=== PATIENT | female | born 1950 | race Caucasian/White ===

== ENCOUNTER 2018-07-20 17:34 | Emergency (ER) | payer OTHER, BC ==
--- NOTE | 2018-07-20 18:07 | PDOC ---
Rapid Medical Evaluation Chief Complaint: Abscess Boil Time Seen by Provider: 07/20/18 18:05 Medical Evaluation: Allergies Allergy/AdvReac Type Severity Reaction Status Date / Time valsartan [From Diovan] Allergy Mild Verified 12/23/12 07:02 cefaclor [From Ceclor] AdvReac Intermediate Difficulty Verified 12/23/12 07:02 Breathing TAPE Allergy Mild Rash Uncoded 12/23/12 07:02 07/20/18 18:05 I have performed a brief in-person evaluation of this patient. The patient presents with a CC of: Abscess HPI: Pt is a 68 YO female who states "I have had a cyst on the right side for years and it starting draining this week." Pt denies hx of MRSA. Admits to hx of Type II DM. Denies fever/chills. Pertinent PE: Skin: unable to be assessed at triage Lungs: Clear Heart: RRR MS. Moves all extremities Neuro: Alert Psych: Age appropriate. The patient will proceed to [facility] for further evaluation. Discharge Disposition - Diagnosis Abscess - Referrals - Patient Instructions - Post Discharge Activity
[2018-07-20 18:09] VITALS: BP 149/86; PULSE 87; TEMP 99.1; BMI 44.1
[2018-07-20] MEDS ORDERED: IBUPROFEN 400 MG TABLET (FP) PO ONE ×2 (19:07→19:10)
--- NOTE | 2018-07-20 19:12 | PDOC ---
History of Present Illness - General Chief Complaint: Abscess Boil Stated Complaint: PCP SENT/BIBIANAESS BOIL/CELLULITIS Time Seen by Provider: 07/20/18 18:05 History Source: Patient Exam Limitations: Clinical Condition - History of Present Illness Initial Comments: 07/20/18 19:27 Patient with h/o diabetes on meds present with complains of right ribs abscess which has been persistent for a week. patient report she saw PCP a week ago for symptoms and was placed on levaquin Abx and silvadene cream but symptoms persists and went back to PCP today for I&D but PCP referred her to to urgent care for I&D who in turn refer pt to ED. Patient denies fever, chills. Patient denies any other symptoms Timing/Duration: 1 week Past History - Past Medical History Allergies/Adverse Reactions: Allergies Allergy/AdvReac Type Severity Reaction Status Date / Time iodine Allergy Intermediate Rash Verified 07/20/18 18:06 valsartan [From Diovan] Allergy Mild Verified 07/20/18 18:06 cefaclor [From Ceclor] AdvReac Intermediate Difficulty Verified 07/20/18 18:06 Breathing TAPE Allergy Mild Rash Uncoded 07/20/18 18:06 Home Medications: Ambulatory Orders Albuterol Sulfate [Proair Respiclick] 90 mcg IH PRN 06/04/16 Allopurinol [Zyloprim -] 100 mg PO DAILY 06/04/16 Clindamycin/Tretinoin [Ziana Gel] 30 gm TP HS 06/04/16 Levothyroxine [Synthroid -] 175 mcg PO DAILY 06/04/16 Metoprolol Succinate [Toprol XL -] 50 mg PO DAILY 06/04/16 Sitagliptin Phosphate [Januvia] 100 mg PO DAILY 06/04/16 Cephalexin Monohydrate [Keflex -] 500 mg PO BID 7 Days #14 capsule 07/20/18 Ibuprofen 800 mg PO Q8H PRN #20 tablet 07/20/18 Mupirocin Ointment [Bactroban 2% Ointment -] 1 applic TP BID #1 tube 07/20/18 Sulfamethoxazole/Trimethoprim [Bactrim Ds -] 1 tab PO BID #14 tablet 07/20/18 Anemia: No Asthma: Yes (H/O BRONCHITIS) Cancer: Yes (ENDOMETRIAL WITH RADIATION) Cardiac Disorders: No CVA: No COPD: No CHF: No Dementia: No Diabetes: Yes GI Disorders: Yes (COLON POLYPS,HEMORRHOIDS) Disorders: No HTN: Yes Hypercholesterolemia: No Liver Disease: No Seizures: No Thyroid Disease: Yes (HYPOTHYROID) - Surgical History Abdominal Surgery: No Appendectomy: No Cardiac Surgery: No Cholecystectomy: No Lung Surgery: No Neurologic Surgery: No Orthopedic Surgery: Yes (LEFT ANKLE TUMOR CTR RIGHT) - Suicide/Smoking/Psychosocial Hx Smoking History: Never smoked Have you smoked in the past 12 months: No Hx Alcohol Use: No Drug/Substance Use Hx: No Substance Use Type: None Review of Systems - Review of Systems Able to Perform ROS?: Yes Is the patient limited Palauan proficient: No Constitutional: No: Chills, Fever Respiratory: No: Symptoms reported Cardiac (ROS): No: Symptoms Reported ABD/GI: No: Symptoms Reported, Nausea, Vomiting Musculoskeletal: Yes: Muscle Pain (ribs lower ribs over abscess area) Integumentary: Yes: Erythema (over abscess), Lumps (right lower ribs abscess) All Other Systems: Reviewed and Negative *Physical Exam - Vital Signs Last Vital Signs Temp Pulse Resp BP Pulse Ox 99.1 F 87 17 149/86 97 07/20/18 18:06 07/20/18 18:06 07/20/18 18:06 07/20/18 18:06 07/20/18 18:06 - Physical Exam General Appearance: Yes: Nourished, Appropriately Dressed. No: Apparent Distress HEENT: positive: Normal ENT Inspection Neck: positive: Supple Respiratory/Chest: positive: Lungs Clear. negative: Respiratory Distress, Accessory Muscle Use Cardiovascular: positive: Regular Rhythm, Regular Rate Gastrointestinal/Abdominal: positive: Flat, Soft. negative: Organomegaly Integumentary: positive: Other (3cm abscess over lateral side of 6th ribs on axilla region with mild surrounding erythema. no drainage from asbcess) Moderate Sedation - Procedure Monitoring Vital Signs: Procedure Monitoring Vital Signs Temperature 99.1 F 07/20/18 18:06 Pulse Rate 87 07/20/18 18:06 Respiratory Rate 17 07/20/18 18:06 Blood Pressure 149/86 07/20/18 18:06 O2 Sat by Pulse Oximetry (%) 97 07/20/18 18:06 Procedures - Incision and Drainage I&D Site: Right: Axilla (lateral to right 5th ribs) Betadine cleansed: No (cleaned with chloroprep due to iodien allergy) Anesthesia: 1% Lidocaine Volume(ml): 2 Blade Size: 11 Attempts: 1 Iodinated Packin in Plain Packing: Yes Complications: none Dressing: Yes Progress: 07/20/18 19:39 Exam significant for 3cm non-draining abscess over right axilla lateral to right 5th rib with mild surrounding erythema. wound cleaned with chlorohexadine and I&D done with #11 blade. wound packing placed. bacitracin applied and pressure dressing with 4x4 and adhesive bandage placed Medical Decision Making - Medical Decision Making 07/20/18 19:35 Patient with h/o diabetes on meds present with complains of right ribs abscess which has been persistent for a week. patient report she saw PCP a week ago for symptoms and was placed on levaquin Abx and silvadene cream but symptoms persists and went back to PCP today for I&D but PCP referred her to to urgent care for I&D who in turn refer pt to ED. Exam significant for 3cm non-draining abscess over right axilla lateral to right 5th rib with mild surrounding erythema. wound cleaned and I&D done . wound packing placed. bacitracin applied and pressure dressing with 4x4 and adhesive bandage placed. patient stable for discharge Keflex and Bactrim with follow-up in 2 days for packing removal. *DC/Admit/Observation/Transfer Diagnosis at time of Disposition: Abscess of skin and subcutaneous tissue Qualifiers: Site of cutaneous abscess: trunk Site of cutaneous abscess of trunk: chest wall Qualified Code(s): L02.213 - Cutaneous abscess of chest wall - Discharge Dispostion Disposition: HOME Condition at time of disposition: Stable Decision to Admit order: No - Prescriptions Prescriptions: Cephalexin Monohydrate [Keflex -] 500 mg PO BID 7 Days #14 capsule Ibuprofen 800 mg PO Q8H PRN #20 tablet PRN Reason: pain Mupirocin Ointment [Bactroban 2% Ointment -] 1 applic TP BID #1 tube Sulfamethoxazole/Trimethoprim [Bactrim Ds -] 1 tab PO BID #14 tablet - Referrals Referrals: Kyle Vicente MD [Primary Care Provider] - - Patient Instructions Printed Discharge Instructions: DI for Incision and Drainage of a Skin Abscess Additional Instructions: take medication as prescribed. apply heat compress to area 2-3times/day. come back in 2 days for wound packing removal - Post Discharge Activity
== END 2018-07-20 19:22 | disposition home or self-care (01) ==
LOC: JERFT 17:34
PROC: 0H97XZZ Drainage of Abdomen Skin, External Approach (ICD-10-PCS; principal; 2018-07-20)
DX: L02.213 Cutaneous abscess of chest wall (principal); I10 Essential (primary) hypertension; E03.9 Hypothyroidism, unspecified; E11.9 Type 2 diabetes mellitus without complications
CPT/HCPCS: 87070; 87205; 99281-25

== ENCOUNTER 2018-07-22 14:08 | Emergency (ER) | payer OTHER, BC ==
[2018-07-22 14:21] VITALS: BP 140/88; PULSE 94; TEMP 99.1; BMI 43.2
--- NOTE | 2018-07-22 14:27 | PDOC ---
Rapid Medical Evaluation Time Seen by Provider: 07/22/18 14:10 Medical Evaluation: Allergies Allergy/AdvReac Type Severity Reaction Status Date / Time iodine Allergy Intermediate Rash Verified 07/22/18 14:10 valsartan [From Diovan] Allergy Mild Verified 07/22/18 14:10 cefaclor [From Ceclor] AdvReac Intermediate Difficulty Verified 07/22/18 14:10 Breathing TAPE Allergy Mild Rash Uncoded 07/22/18 14:10 07/22/18 14:13 I have performed a brief in-person evaluation of this patient. The patient presents with a chief complaint of: wound check of R chest wall abscess, still draining lots of pus per pt, packing in place. No f/c On keflex and bactrim. Wound cx 2 days ago neg so far (of note, pt was already on levaquin prior to recent ED visit. H/o DM (last HA1c ~7 per pt), endometrial cancer remotely Pertinent physical exam findings:defer to FT I have ordered the following:nothing The patient will proceed to the ED for further evaluation. Discharge Disposition - Diagnosis Wound check, abscess - Referrals - Patient Instructions - Post Discharge Activity
--- NOTE | 2018-07-22 14:56 | PDOC ---
Suture Removal/Wound Check HPI - History of Present Illness Chief Complaint: Revisit,Wound Recheck Stated Complaint: REVISIT, FOLLOW UP Time Seen by Provider: 07/22/18 14:10 History Source: Yes: Patient Exam Limitations: Yes: No Limitations [facility] - Previous ED Treatment Type of procedure performed on last visit: Yes: I&D of Abscess Tetanus Immunization: Yes: Up to Date Antibiotics Prescribed: No - Onset of Previous Treatment Comment:: 07/23/18 08:04 came for. reevaluation and packing change of right flank abscess. states is painful, has felt feverish, Is continuing to drain purulent drainage. Past History - Travel Traveled outside of the country in the last 30 days: No Close contact w/someone who was outside of country & ill: No - Past Medical History Allergies/Adverse Reactions: Allergies Allergy/AdvReac Type Severity Reaction Status Date / Time iodine Allergy Intermediate Rash Verified 07/22/18 14:10 valsartan [From Diovan] Allergy Mild Verified 07/22/18 14:10 cefaclor [From Ceclor] AdvReac Intermediate Difficulty Verified 07/22/18 14:10 Breathing TAPE Allergy Mild Rash Uncoded 07/22/18 14:10 Home Medications: Ambulatory Orders Albuterol Sulfate [Proair Respiclick] 90 mcg IH PRN 06/04/16 Allopurinol [Zyloprim -] 100 mg PO DAILY 06/04/16 Clindamycin/Tretinoin [Ziana Gel] 30 gm TP HS 06/04/16 Levothyroxine [Synthroid -] 175 mcg PO DAILY 06/04/16 Metoprolol Succinate [Toprol XL -] 50 mg PO DAILY 06/04/16 Sitagliptin Phosphate [Januvia] 100 mg PO DAILY 06/04/16 Cephalexin Monohydrate [Keflex -] 500 mg PO BID 7 Days #14 capsule 07/20/18 Ibuprofen 800 mg PO Q8H PRN #20 tablet 07/20/18 Mupirocin Ointment [Bactroban 2% Ointment -] 1 applic TP BID #1 tube 07/20/18 Sulfamethoxazole/Trimethoprim [Bactrim Ds -] 1 tab PO BID #14 tablet 07/20/18 Oxycodone HCl/Acetaminophen [Percocet 5-325 mg Tablet -] 1 - 2 tab PO Q4H PRN # 7 tablet MDD 4 07/22/18 Anemia: No Asthma: Yes (H/O BRONCHITIS) Cancer: Yes (ENDOMETRIAL WITH RADIATION) Cardiac Disorders: No CVA: No COPD: No CHF: No Dementia: No Diabetes: Yes GI Disorders: Yes (COLON POLYPS,HEMORRHOIDS) Disorders: No HTN: Yes Hypercholesterolemia: No Liver Disease: No Seizures: No Thyroid Disease: Yes (HYPOTHYROID) - Surgical History Abdominal Surgery: No Appendectomy: No Cardiac Surgery: No Cholecystectomy: No Lung Surgery: No Neurologic Surgery: No Orthopedic Surgery: Yes (LEFT ANKLE TUMOR CTR RIGHT) - Immunization History Immunization Up to Date: Yes - Suicide/Smoking/Psychosocial Hx Smoking History: Never smoked Have you smoked in the past 12 months: No Hx Alcohol Use: No Drug/Substance Use Hx: No Substance Use Type: None Suture Removal/Wound Check PE - Physical Exam Laceration/Wound Check Symptoms: reports: None Current Severity Level: None Maximum Severity Level: None *Review of Systems - Review of Systems Able to Perform ROS?: Yes Constitutional: Yes: Symptoms Reported, See HPI, Fever, Malaise HEENTM: Yes: See HPI. No: Symptoms Reported Respiratory: No: Symptoms reported ABD/GI: Yes: Symptoms Reported Integumentary: Yes: Symptoms Reported, See HPI, Bruising, Erythema, Lesions Neurological: No: Symptoms reported All Other Systems: Reviewed and Negative *Physical Exam - Vital Signs Last Vital Signs Temp Pulse Resp BP Pulse Ox 99.1 F 94 H 18 140/88 98 07/22/18 14:10 07/22/18 14:10 07/22/18 14:10 07/22/18 14:10 07/22/18 14:10 - Physical Exam General Appearance: Yes: Nourished, Appropriately Dressed, Apparent Distress, Mild Distress HEENT: positive: EOMI, MANUEL, Normal ENT Inspection, TMs Normal, Pharynx Normal Neck: positive: Supple. 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 NML intact, Fully Oriented, Alert, Normal Mood/ Affect, Normal Response, Motor Strength 5/5 Moderate Sedation - Procedure Monitoring Vital Signs: Procedure Monitoring Vital Signs Temperature 99.1 F 07/22/18 14:10 Pulse Rate 94 H 07/22/18 14:10 Respiratory Rate 18 07/22/18 14:10 Blood Pressure 140/88 07/22/18 14:10 O2 Sat by Pulse Oximetry (%) 98 07/22/18 14:10 Procedures - Incision and Drainage Anesthesia: 1% Lidocaine w/ Epi Blade Size: 11 Iodinated Packin/4 in Complications: none Dressing: Yes *DC/Admit/Observation/Transfer Diagnosis at time of Disposition: Wound check, abscess - Discharge Dispostion Disposition: HOME Condition at time of disposition: Stable Decision to Admit order: No - Prescriptions Prescriptions: Oxycodone HCl/Acetaminophen [Percocet 5-325 mg Tablet -] 1 - 2 tab PO Q4H PRN # 7 tablet MDD 4 PRN Reason: Pain - Referrals Referrals: Kyle Vicente MD [Primary Care Provider] - - Patient Instructions Printed Discharge Instructions: DI for Debridement of a Wound, Infection, or Burn Additional Instructions: Rest, keep area elevated. Avoid strenuous activity or exercise until wound is healed Use hot soaks to area to bring more blood to the surface and encourage drainage May change dressings as needed to keep clean - trying to avoid removal of packing for 2 days. If packing needs to be changed, return to emergency department or with your followup physician for wound care and evaluation and repacking as needed If packing needs to be removed, then in 2 days, while in the shower remove dressing and quickly pull the packing taken out. Allow water from shower to wash area thoroughly for 2-3 minutes, and pat dry upon exit of shower and replace dressing. Change his dressing daily until the wound is completely healed. May use Tylenol or Motrin for mild pain relief Use stronger medications as directed and prescribed Continue all medications as prescribed Followup with private physician in 2-3 days for wound check Return to emergency Department for worsening swelling, pain, redness, fevers as needed - Post Discharge Activity
== END 2018-07-22 15:28 | disposition home or self-care (01) ==
LOC: JER 14:08
DX: Z48.01 Encounter for change or removal of surgical wound dressing (principal)
CPT/HCPCS: 99281-25

== ENCOUNTER 2018-07-24 11:17 | Emergency (ER) | payer OTHER, BC ==
[2018-07-24 11:24] VITALS: BP 117/73; PULSE 82; TEMP 98.8; BMI 43.2
--- NOTE | 2018-07-24 12:20 | PDOC ---
Suture Removal/Wound Check HPI - History of Present Illness Chief Complaint: Revisit,Wound Recheck Stated Complaint: REVISIT,WOUND CHECK Time Seen by Provider: 07/24/18 12:04 History Source: Yes: Patient Exam Limitations: Yes: No Limitations [facility] - Previous ED Treatment Type of procedure performed on last visit: Yes: I&D of Abscess Tetanus Immunization: Yes: Up to Date Antibiotics Prescribed: Yes - Onset of Previous Treatment Comment:: 07/24/18 12:46 here for packing removal and wound check to I and D performed here ~ 5 days ago. States feels much improved and less drainage. Past History - Travel Traveled outside of the country in the last 30 days: No Close contact w/someone who was outside of country & ill: No - Past Medical History Allergies/Adverse Reactions: Allergies Allergy/AdvReac Type Severity Reaction Status Date / Time iodine Allergy Intermediate Rash Verified 07/24/18 11:20 valsartan [From Diovan] Allergy Mild Verified 07/24/18 11:20 cefaclor [From Ceclor] AdvReac Intermediate Difficulty Verified 07/24/18 11:20 Breathing TAPE Allergy Mild Rash Uncoded 07/24/18 11:20 Home Medications: Ambulatory Orders Albuterol Sulfate [Proair Respiclick] 90 mcg IH PRN 06/04/16 Allopurinol [Zyloprim -] 100 mg PO DAILY 06/04/16 Clindamycin/Tretinoin [Ziana Gel] 30 gm TP HS 06/04/16 Levothyroxine [Synthroid -] 175 mcg PO DAILY 06/04/16 Metoprolol Succinate [Toprol XL -] 50 mg PO DAILY 06/04/16 Sitagliptin Phosphate [Januvia] 100 mg PO DAILY 06/04/16 Cephalexin Monohydrate [Keflex -] 500 mg PO BID 7 Days #14 capsule 07/20/18 Ibuprofen 800 mg PO Q8H PRN #20 tablet 07/20/18 Mupirocin Ointment [Bactroban 2% Ointment -] 1 applic TP BID #1 tube 07/20/18 Sulfamethoxazole/Trimethoprim [Bactrim Ds -] 1 tab PO BID #14 tablet 07/20/18 Oxycodone HCl/Acetaminophen [Percocet 5-325 mg Tablet -] 1 - 2 tab PO Q4H PRN # 7 tablet MDD 4 07/22/18 Anemia: No Asthma: Yes (H/O BRONCHITIS) Cancer: Yes (ENDOMETRIAL WITH RADIATION) Cardiac Disorders: No CVA: No COPD: No CHF: No Dementia: No Diabetes: Yes GI Disorders: Yes (COLON POLYPS,HEMORRHOIDS) Disorders: No HTN: Yes Hypercholesterolemia: No Liver Disease: No Seizures: No Thyroid Disease: Yes (HYPOTHYROID) - Surgical History Abdominal Surgery: No Appendectomy: No Cardiac Surgery: No Cholecystectomy: No Lung Surgery: No Neurologic Surgery: No Orthopedic Surgery: Yes (LEFT ANKLE TUMOR CTR RIGHT) - Immunization History Immunization Up to Date: Yes - Suicide/Smoking/Psychosocial Hx Smoking History: Never smoked Have you smoked in the past 12 months: No Hx Alcohol Use: No Drug/Substance Use Hx: No Substance Use Type: None Suture Removal/Wound Check PE - Physical Exam Laceration/Wound Check Symptoms: reports: None Current Severity Level: None Maximum Severity Level: None Pain Localization: None *Review of Systems - Review of Systems Able to Perform ROS?: Yes Constitutional: Yes: Symptoms Reported, See HPI, Malaise ABD/GI: Yes: Symptoms Reported Musculoskeletal: Yes: Symptoms Reported, See HPI Integumentary: Yes: See HPI. No: Symptoms Reported All Other Systems: Reviewed and Negative *Physical Exam - Vital Signs Last Vital Signs Temp Pulse Resp BP Pulse Ox 98.8 F 82 18 117/73 99 07/24/18 11:20 07/24/18 11:20 07/24/18 11:20 07/24/18 11:20 07/24/18 11:20 - Physical Exam General Appearance: Yes: Nourished, Appropriately Dressed, Apparent Distress, Mild Distress HEENT: positive: EOMI, MANUEL, Normal ENT Inspection, TMs Normal Neck: positive: Supple. negative: Tender Respiratory/Chest: positive: Lungs Clear Gastrointestinal/Abdominal: positive: Tender (to right flank with wound/ packing draining smaller amt of purulent drainage. ), Soft. negative: Distended , Guarding Moderate Sedation - Procedure Monitoring Vital Signs: Procedure Monitoring Vital Signs Temperature 98.8 F 07/24/18 11:20 Pulse Rate 82 07/24/18 11:20 Respiratory Rate 18 07/24/18 11:20 Blood Pressure 117/73 07/24/18 11:20 O2 Sat by Pulse Oximetry (%) 99 07/24/18 11:20 Procedures - Incision and Drainage I&D Site: Right: Abdomen (packing removed/ irrigated with saline and repacked with iodoform guaze / dressing ) Iodinated Packin/4 in Complications: none *DC/Admit/Observation/Transfer Diagnosis at time of Disposition: Wound check, abscess - Discharge Dispostion Disposition: HOME Condition at time of disposition: Stable Decision to Admit order: No - Referrals Referrals: Kyle Vicente MD [Primary Care Provider] - Onofre Alex MD [Staff Physician] - - Patient Instructions Printed Discharge Instructions: DI for Debridement of a Wound, Infection, or Burn Additional Instructions: Rest, keep area elevated. Avoid strenuous activity or exercise until wound is healed Use hot soaks to area to bring more blood to the surface and encourage drainage May change dressings as needed to keep clean - trying to avoid removal of packing for 2 days. If packing needs to be changed, return to emergency department or with your followup physician for wound care and evaluation and repacking as needed If packing needs to be removed, then in 2 days, while in the shower remove dressing and quickly pull the packing taken out. Allow water from shower to wash area thoroughly for 2-3 minutes, and pat dry upon exit of shower and replace dressing. Change his dressing daily until the wound is completely healed. May use Tylenol or Motrin for mild pain relief Use stronger medications as directed and prescribed Continue all medications as prescribed Followup with private physician in 2-3 days for wound check Return to emergency Department for worsening swelling, pain, redness, fevers as needed - Post Discharge Activity Forms/Work/School Notes: Back to Work
== END 2018-07-24 12:49 | disposition home or self-care (01) ==
LOC: JERFT 11:17
DX: Z48.01 Encounter for change or removal of surgical wound dressing (principal); E03.9 Hypothyroidism, unspecified; I10 Essential (primary) hypertension; E11.9 Type 2 diabetes mellitus without complications; J45.909 Unspecified asthma, uncomplicated
CPT/HCPCS: 99281-25

== ENCOUNTER 2018-10-12 12:03 | Day surgery (SDC) | payer OTHER, BC ==
--- NOTE | 2018-10-06 08:41 | HP ---
DATE OF ADMISSION: 10/12/2018 HISTORY: A 68-year-old woman who I had originally seen in July this past year with an infected epidermal inclusion cyst that had been managed with incision and drainage. She had been advised to wait some time before re-evaluation and subsequent moving in the direction of formal excision of the cyst in the uninfected state. I saw the patient in the office today, and the acute inflammatory changes have since resolved. She still has a significant epidermal inclusion cyst at the right midback region. The patient also has an uninfected left mid back cyst as well. At this juncture, the patient presents for excision of the recently infected epidermal inclusion cyst of the right back as well as uninfected cyst of the left. PAST MEDICAL HISTORY: Significant for hypertension, diabetes, GERD, arthritis, endometrial cancer, and psoriasis. PAST SURGICAL HISTORY: Significant for carpal tunnel syndrome, thyroid surgery, hysterectomy, knee replacement, left ankle surgery. REGULAR MEDICATIONS: Synthroid, omeprazole, Januvia, allopurinol, metoprolol. ALLERGIES: CECLOR, DIOVAN, IODINE DYE. Patient also states she has sensitivity to ADHESIVES. SOCIAL HISTORY: Negative tobacco. Negative alcohol. FAMILY HISTORY: Father history of heart disease. Mother history of colon cancer. Siblings, one with throat cancer. REVIEW OF SYSTEMS: Otherwise nil. PHYSICAL EXAMINATION: The patient has a large epidermal inclusion cyst involving the right mid posterolateral back. The acute and inflammatory process has since resolved. There is a lot of subsequent hyperpigmentation in that region as well. A 1- to 1.5- cm left lower mid back uninfected cyst, unchanged. IMPRESSION: Large epidermal inclusion cyst right midback with recent infection requiring incision and drainage and local management. Uninfected left back cyst. PLAN: Excision right and left soft tissue mass/epidermal inclusion cyst under local anesthesia with sedation. Indications, alternatives, possible complications reviewed. Consent obtained. Patient to be seen preoperatively by Dr. Kyle Vicente of the medical service. Please refer to his notes for those medical details. CHIQUIS ALMONTE M.D. LOKESH/[id number] cc: Kyle Vicente MD MTDD
[2018-10-11 10:32] VITALS: BMI 44.1
[2018-10-12] MEDS ORDERED: CEFAZOLIN 1 GM/D5W 1 GM/50 ML BAG ONE (12:49)
[2018-10-12] MEDS ORDERED: fentaNYL CITRATE 250 MCG/5 ML VIAL ONE (14:04)
[2018-10-12] MEDS ORDERED: ROCURONIUM BROMIDE 50 MG/5 ML VIAL ONE ×2 (14:05)
[2018-10-12] MEDS ORDERED: MIDAZOLAM HCL 2 MG/2 ML SINGLE DOSE VIAL ONE ×4 (14:05→14:36)
[2018-10-12] MEDS ORDERED: PROPOFOL 20 ML ONE (14:05)
[2018-10-12] MEDS ORDERED: ceFAZolin SODIUM 1 GM VIAL ONE ×2 (14:24)
[2018-10-12] MEDS ORDERED: ceFAZolin SODIUM 1 GM VIAL IVPB ONE ×2 (14:25)
[2018-10-12] MEDS ORDERED: LIDOCAINE 1%/EPI 1:100000 (50 ML MULTI DOSE VIAL) NR ONE (14:28)
[2018-10-12] MEDS ORDERED: LIDOCAINE 1%-EPI 1:100,000 30 ML MDV IJ ONE (14:34)
[2018-10-12] MEDS ORDERED: oxyCODONE HCL 5 MG TABLET PO PRN (15:25)
[2018-10-12] MEDS ORDERED: ONDANSETRON 4 MG/2 ML VIAL IVPUSH PRN (15:25)
[2018-10-12] MEDS ORDERED: LACTATED RINGERS SOLUTION 1,000 ML IV SCH (15:30)
[2018-10-12 16:35] VITALS: TEMP 98.3
[2018-10-12 18:07] VITALS: BP 141/64; PULSE 100
--- NOTE | 2018-10-13 10:29 | OP ---
DATE OF OPERATION: 10/12/2018 PREOPERATIVE DIAGNOSIS: Large right posterolateral back mass/epidermal inclusion cyst/left back soft tissue mass. POSTOPERATIVE DIAGNOSIS: Large right posterolateral back mass/epidermal inclusion cyst/left back soft tissue mass. PROCEDURE: Excision right back soft tissue mass (intermediate wound closure, 6 cm)/excision left back mass (intermediate wound closure, 3 cm). OPERATING SURGEON: Benitez Short MD ANESTHESIOLOGIST: Brayan Worrell MD ANESTHESIA: Lidocaine 1% with epinephrine/MAC. HISTORY: This 68-year-old woman had developed a large abscess of the left posterolateral back secondary to what appeared to be an infected epidermal inclusion cyst. She was managed conservatively and went on to improve. Patient presents at this time for excision of the right posterolateral lesion in the uninfected state. Patient is also with a smaller similar-appearing lesion at the level of the left back, which has not been previously infected. Indications, alternatives, and possible complications reviewed. Consent was obtained. DESCRIPTION OF PROCEDURE: With the patient in the left lateral decubitus position, the right posterolateral back was prepped and draped in sterile fashion using chlorhexidine. A 6-cm transverse elliptical incision was made about the mass and deepened into the subcutaneous space. The mass was excised in its entirety without rupture. The mass was delivered. Adequate hemostasis was ensured. The wound was closed in layers. The subcutaneous tissues were approximated using interrupted 3-0 chromic sutures and 3-0 Vicryl sutures. The subcuticular layer was approximated using interrupted 4-0 Biosyn sutures The skin edges were approximated using continuous 5-0 nylon suture. Now, directing our attention to the left mid back, a longitudinal 3-cm elliptical incision was made about the lesion and deepened into the subcutaneous space. The lesion was excised in its entirety without rupture. This lesion was also closed in the same fashion as described above. At the completion of the procedure, Dermabond was placed at the level of each wound. NEEDLE AND INSTRUMENT COUNTS: Correct. ESTIMATED BLOOD LOSS: Minimal. SPECIMENS: Right posterolateral back mass/left back mass. DRAINS: None. IMPLANTS: None. Patient tolerated the procedure. The procedure was terminated. Scott [id number] MTDD
--- NOTE | 2018-10-14 15:59 | PATH ---
Surgical Pathology Report Patient Name: [place] GARCIA [facility]. Rec. #: [id number] /Age/Gender: 1950 (Age: 68) / F Account: [id number] Location: [facility] SURGICAL Taken: 10/12/2018 Received: 10/13/2018 Reported: 10/14/2018 Physicians: Benitez Short M.D. Specimen(s) Received A: SOFT TISSUE, BACK, RIGHT, EPIDERMAL INCLUSION CYST B: SOFT TISSUE, LOWER MID BACK, LEFT, EPIDERMAL INCLUSION CYST Clinical History Soft tissue versus epidermal inclusion cyst Final Diagnosis A. SOFT TISSUE, MID BACK, RIGHT, EPIDERMAL INCLUSION CYST, EXCISION: INFLAMED EPIDERMAL INCLUSION CYST. B. SOFT TISSUE, LOWER MID BACK, LEFT, EPIDERMAL INCLUSION CYST, EXCISION: EPIDERMAL INCLUSION CYST. Electronically Signed Grace Hutchison M.D. Gross Description A. Received in formalin labeled "right mid back soft tissue/epidermal inclusion cyst," is a 5.4 x 2.2 cm yuen, elliptical, unoriented portion of skin excised to a depth of 3.2 cm. Sectioning reveals a focal intact cystic structure. A leather goods sales representative section is submitted in one cassette. B. Received in formalin labeled "soft tissue left lower mid back epidermal inclusion cyst," is a 1.8 x 1.0 cm yuen, elliptical, unoriented portion of skin excised to depth of 1.3 cm. There is a bulging subepidermal nodule present. Sectioning reveals an intact cystic structure. A leather goods sales representative section is submitted in one cassette. 10/13/201810/13/2018
== END 2018-10-12 17:30 | disposition home or self-care (01) ==
LOC: JASU-SURG 12:03
PROVIDERS: ATTEND Surgery
PROC: 0JB70ZZ Excision of Back Subcutaneous Tissue and Fascia, Open Approach (ICD-10-PCS; 2018-10-12)
PROC: 0JB70ZZ Excision of Back Subcutaneous Tissue and Fascia, Open Approach (ICD-10-PCS; principal; 2018-10-12 15:00)
DX: D21.6 Benign neoplasm of connective and other soft tissue of trunk, unspecified (principal); L72.0 Epidermal cyst
CPT/HCPCS: 82962; 88304-TC; 94760